=== PATIENT | female | born 1960 | race American Indian/Alaskan Native ===

== ENCOUNTER 2017-01-28 06:58 | Day surgery (SDC) | payer MEDICAID ==
[~2017-01-28 06:58] MED LIST: TETRACAINE 0.5% OD PRN
--- NOTE | 2017-01-28 07:38 | Anesthesia Consultation ---
Anesthesia Consult and Med Hx Date of service: 01/28/17 - Airway Anesthetic Teeth Evaluation: Edentulous ROM Head & Neck: Adequate Mental/Hyoid Distance: Adequate Mallampati Class: Class II Intubation Access Assessment: Probably Good - Pulmonary Exam CTA: Yes - Cardiac Exam Cardiac Exam: RRR - Pre-Operative Health Status ASA Pre-Surgery Classification: ASA3 Proposed Anesthetic Plan: MAC - Pulmonary Hx Smoking: Yes COPD: Yes - Cardiovascular System Hx Hypertension: Yes (since 2006) Hx Coronary Artery Disease: Yes Hx Heart Attack/AMI: Yes (2001) Hx Peripheral Vascular Disease: Yes (Stent right leg; carotid artery stent) - Other Systems Hx Cancer: No
--- NOTE | 2017-01-28 07:39 | Anesthesia Day of Surgery ---
Anesthesia Day of Surgery - Day of Surgery Patient Examined: Yes Patient H&P Reviewed: Yes Patient is NPO: Yes
[2017-01-28] MEDS ORDERED: NACL BACTERIOSTATIC INFILTRATI ONE (07:46)
[2017-01-28] MEDS: MYDRIACYL OD SCH ×3 (07:54→08:31)
[2017-01-28] MEDS: VIGAMOX OD SCH ×3 (07:54→08:31)
[2017-01-28] MEDS: AK-Dilate OD SCH ×3 (07:54→08:31)
[2017-01-28] MEDS ORDERED: VERSED ONE (08:30)
[2017-01-28] MEDS ORDERED: SUBLIMAZE ONE (08:30)
[2017-01-28] MEDS ORDERED: NACL 0.9% IR ONE (09:28)
--- NOTE | 2017-01-28 09:41 | Operative Report ---
Operative Report Operative Report: PATIENT'S NAME: DATE OF : DATE OF SURGERY: 01/28/2017 PREOPERATIVE DIAGNOSIS: Cataract right eye POSTOPERATIVE DIAGNOSIS: Same OPERATIVE PROCEDURE: Phacoemulsification with intraocular lens implantation, right eye SURGEON: Allie Durham M.D. BARRER AND TACKER SURGEON: Benny Lens: [id number] 20.5 D ANESTHESIA: Monitored anesthesia care in combination with topical and intracameral anesthesia because of the established specific risk of reflux, arrhythmias, or anxiety attacks associated with ocular manipulation, as well as the difficulty of the biomedical electronics technician to manage such potentially catastrophic events while simultaneously attempting to complete the surgical procedure and was deemed necessary for the patient's safety to have an Anhydrous Ammonia Production Supervisor present during the procedure whenever possible. An Anhydrous Ammonia Production Supervisor was utilized to regulate the intravenous sedation of the patient so the patient was cooperative yet not asleep in order for the patient to successfully maintain fixation of the eye on the operating light of the microscope. COMPLICATIONS: No surgical complications No blood loss. ALLERGIES: Acetaminophen codeine and hydrocodone PROGNOSIS: Excellent INDICATIONS FOR SURGERY: The patient is undergoing surgery in the hopes of eliminating or improving these visual difficulties. PROCEDURE: After arriving at the surgery center, the patient was given topical anesthetic and dilating drops, as noted in the record. The patient was then taken into the operating room and given more anesthetic drops. The eyelids , lashes, and lid margins were scrubbed with Betadine solution, and the patient was draped. The Nurse Anhydrous Ammonia Production Supervisor administered IV sedation and monitored the patient during the procedure. The eye was then fixated with a 0.12, and a stab incision was made in the peripheral clear cornea into the anterior chamber. This was made on my left side. Viscoelastic was next used to fill the anterior chamber. The eye was once again fixated with the 0.12 forceps and a keratome was used make an incision in clear cornea peripherally on my right hand side temporally. The capsule forceps were used to open the central anterior capsule and then make a continuous round capsulotomy. Hydrodissection was carried out utilizing a cannula and balanced salt solution to delineate the cortical material from the capsule and the nucleus from the cortical material. The phaco tip was introduced into the eye and used to remove the anterior cortical material in the area of the capsulotomy. Then the phaco tip was buried into the nucleus, and a chopping instrument was introduced into the eye and used to provide countertraction in the nucleus between this instrument and the phaco tip fracturing the nucleus. This procedure was repeated multiple times, providing multiple small segments of the lens, and then the phaco tip was used to remove each of these segments. An I/A tip was then used to remove the remaining cortex. The anterior chamber was refilled with viscoelastic. An one-piece, acrylic intraocular lens was then placed into an inserting cartridge. The tip of the inserting cartridge was introduced into the keratome incision and into the anterior chamber. The implant was gently advanced through the cartridge and into the eye, where it unfolded, and both haptics were placed in the capsular bag, where it centered nicely and appeared to be well fixated. After placement of the intraocular lens, the I~and~A handpiece was placed back into the eye and used to remove the viscoelastic, including viscoelastic that was behind the optic of the intraocular lens. The anterior chamber was then filled with balanced salt solution, and hydration of the wound was used to cause swelling of the wound and more appropriate watertight closure. When the wound was found to be firm, the patient was asked to comment on how bright the light was. If there was no light perception at all or if the light was substantially dimmer than during the rest of the surgery, the amount of fluid in the eye was decompressed to lower the intraocular pressure until the patient could see the bright light again. This was done to avoid any damage or decreased blood flow to the optic nerve. MEDICATIONS APPLIED AT END OF SURGERY: One drop of Pred Forte and Vigamox The patient was given a shield to wear at night and was instructed not to rub or push on the eye. DISCHARGE SUMMARY: The patient was released in stable condition. The patient and those with the patient were given a written sheet of postoperative instructions and counseling on any abnormal laboratory studies. The patient is to see us tomorrow for follow-up in the office and is to call immediately for any difficulties. Allie Durham M.D. Date
--- NOTE | 2017-01-28 09:42 | Short Stay Summary ---
Short Stay Documentation Date of service: 01/28/17 - History H&P: obtained from office - Allergies and Medications Current Medications: Allergies acetaminophen [From Vicodin] Allergy (Verified 01/27/17 11:16) Itching codeine Allergy (Verified 01/27/17 11:16) Itching hydrocodone bitartrate [From Vicodin] Allergy (Verified 01/27/17 11:16) Itching Home Medications Medication Instructions Recorded Confirmed Last Taken Type AtorvaSTATin [Lipitor] 80 mg PO DAILY 01/28/17 01/28/17 01/27/17 History Budesoni/Formoterol 80-4.5(Nf) 2 puff IH BID 01/28/17 01/28/17 01/27/17 History [Symbicort 80-4.5 (Nf)] Carvedilol [Coreg] 25 mg PO BID 01/28/17 01/28/17 01/28/17 06:30 History Diltiazem HCl [Diltiazem ER] 240 mg PO DAILY 01/28/17 01/28/17 01/27/17 History Ipratropium (Nf) [Atrovent HFA 1 puff IH DAILY 01/28/17 01/28/17 01/27/17 History 17MCG/PUFF] Ipratropium [place] [Ipratropium 0.2 mg IH DAILY 01/28/17 01/28/17 01/27/17 History [place]] Levalbuterol Hfa 45 Mcg/Puff 0.31 mg IH DAILY 01/28/17 01/28/17 01/27/17 History [Xopenex Hfa (Nf)] Lisinopril [Lisinopril] 20 mg PO DAILY 01/28/17 01/28/17 01/28/17 06:30 History Potassium Chloride [Potassium 10 meq PO DAILY 01/28/17 01/28/17 01/27/17 History Chloride] Ranitidine HCl [Zantac 150 MG TAB] 150 mg PO BID 01/28/17 01/28/17 01/27/17 History Torsemide [Torsemide] 20 mg PO DAILY 01/28/17 01/28/17 01/27/17 History Warfarin [Coumadin] 5 mg PO QDAY 01/28/17 01/28/17 01/27/17 History Active Medications Moxifloxacin HCl (Vigamox) 1 drops OD Q5MIN JESSE Stop: 01/30/17 06:01 Last Admin: 01/28/17 08:31 Dose: 1 drops Phenylephrine HCl (Ak-Dilate) 1 drops OD Q5MIN JESSE Stop: 01/30/17 06:01 Last Admin: 01/28/17 08:31 Dose: 1 drops Prednisolone Acetate (Pred Forte 1%) 1 drops OD QID JESSE Tetracaine HCl (Tetracaine 0.5%) 1 drops OD Q5M PRN PRN Reason: Analgesia Last Admin: 01/28/17 07:54 Dose: 1 drops Tropicamide (Mydriacyl) 1 drops OD Q5MIN [facility] Stop: 01/30/17 06:01 Last Admin: 01/28/17 08:31 Dose: 1 drops - Brief post op/procedure progress note Date of procedure: 01/28/17 Pre-op diagnosis: cataract right eye Post-op diagnosis: same Procedure: Emulsification with intraocular lens insertion right eye Anesthesia: MAC Surgeon: ANN GARCIA Estimated blood loss: none Condition: stable - Disposition Condition at discharge: Good Disposition: DISCHARGED TO HOME OR SELFCARE - Discharge Diagnoses (1) Cataract Status: Resolved Short Stay Discharge Plan Follow up with: PRIMARY CARE, [Primary Care Provider] - 7 Days
[2017-01-28] MEDS ORDERED: PRED FORTE 1% OD SCH (10:00)
--- NOTE | 2017-01-28 10:20 | Post Anesthesia Evaluation ---
- Post Anesthesia Evaluation Patient Participated: Yes Airway Patent: Yes Stable Respiratory Function: Yes Nausea/Vomiting: No Temp > 96.8F: Yes Pain Manageable: Yes Adequeate Hydration: Yes Anesthesia Complications: No Block Receding Appropriately: Not Applicable Patient on Ventilator: No
[2017-01-28 11:44] VITALS: BP 131/72
--- NOTE | 2017-01-29 01:55 | Admit Criteria Form ---
Admission Criteria Documentation: AMBULATORY SURGERY EXCEPTION CRITERIA Ambulatory Surgery Exception Criteria ( Place 'X' for any and all applicable criteria): Surgery or procedure performed on ambulatory basis may require inpatient stay for[A] ANY ONE of the following(1)(2)(3)(4)(5)(6)(7)(8)(9): [X] I. A preoperative situation, condition, or finding that warrants inpatient stay as indicated by ANY ONE of the following: [] a) Inpatient care needed because of severity of a disease or condition rather than the surgery (eg, severe cardiac or respiratory disease, severe infection) (15) (16 ) (17) (18) [] b) Emergent procedure (eg, angioplasty for acute ischemia)(19) [] c) Complex surgical approach or situation as indicated by ANY ONE of the following(3): [] i) Open approach needed instead of usual endoscopic, transcatheter, or other less invasive procedure [] ii) Difficult approach because of previous operation [] iii) Airway monitoring required after open neck procedures(20)(21) [] iv) Large mass requiring unusually extensive dissection [] v) Additional complicating feature requiring inpatient care (eg, drain management)(22(23): [X] d) Major surgery in a pt with high anesthetic risk as indicated by ANY ONE of the following (2)(3)(5)(7)(8): [X] i) ASA risk class III or higher (severe systemic disease impairing function) [D] [] ii) Advanced age (eg, older than 85 years)(14)(24) [] iii) Symptomatic heart failure(25) [] iv) Symptomatic asthma or COPD(8)(21) [] v) Morbid obesity with hemodynamic or respiratory problems(20)( 21)(26)(27) [] vi) Obstructive sleep apnea(20)(21) [] vii) Former premature infants who are younger than 60 weeks [] viii) High risk for severe postoperative abnormalities (eg, severe postoperative hypocalcemia after parathyroidectomy for severe hyperparathyroidism)(27)( 28) [] ix) Unstable angina(25) [] e) Drug-related risk requiring inpatient stay as indicated by ANY ONE of the following(5)(10)(14)(32)(33) [] i) Procedure requires discontinuing drugs or other therapy (eg , antiarrhythmic medication, antiseizure medication), which necessitates inpatient observation or treatment.(18)(31) [] ii) Major surgery and high risk drug use as indicated by ANY ONE of the following: [] 1) Active abuse of cocaine or similar drug [] 2) Monoamine oxidase inhibitor use [] 3) Other drug identified as posing risk [] f) Inadequate outpatient care situation as indicated by ANY ONE of the following(5)(10)(14)(32)(33) [] i) Patient lives remote from medical facility and procedure has urgent complication potential, and temporary nearby residence cannot be arranged [] ii) Patient will have postprocedure incapacitation and inadequate assistance at home, or alternative level of care cannot be arranged. [] iii) Patient will have long general anesthesia or procedure side effect resolution time, and competent person to stay with patient on first postoperative night at home or alternative level of care cannot be arranged. []iv) Other inadequate outpatient situation that cannot be handled by other means [] II. A perioperative event, condition, or finding that warrants inpatient stay as indicated by ANY ONE of the following (1)(2)(3): [] a) Inadequate physiologic recovery: cardiovascular, respiratory, or hemodynamic status not normal or near preoperative baseline(18) [] b) Hemodynamic instability [] c) Patient not alert with near normal or baseline mental status [] d) Temperature not normal or as expected and not appropriate for outpatient treatment of condition [] e) Ambulatory or appropriate activity level status not yet achieved post procedure [E](34)(35)(36) [] f) Operative site not appropriate (eg, unexpected or excessive drainage or bleeding) [] g) Postoperative effects not resolved or adequately managed (eg, significant pain or vomiting not appropriate for outpatient or next level of care)(10)(12) [] h) Complicating features requiring inpatient care as indicated by ANY ONE of the following(37): [] i) Severe complications of procedure (eg, bowel injury, airway compromise, vascular injury,severe hemorrhage) [] ii) Extensive (eg, dissection far beyond usual scope of procedure ) or prolonged (eg, 120 minutes beyond usual) surgery needed requiring inpatient postoperative care [] iii) Conversion to an open or complex procedure that requires inpatient care (eg, open vs laparoscopic cholecystectomy, abdominal vs vaginal hysterectomy)(38) [] iv) Comorbid condition or test result identified during or post procedure that requires inpatient care (7) [] v) Malignant hyperthermia(30) [] vi) Other complicating feature requiring inpatient care(22)(23) Inpatient stay may be needed until ALL of the following are present (1)(2)(3)(4) (5)(6)(10)(14)(33)(40): []a) Physiologic recovery: cardiovascular, respiratory, and hemodynamic status normal or near preoperative baseline []b) Hemodynamic stability []c) Patient alert, with near normal or baseline mental status []d) Temperature appropriate: patient afebrile or temperature appropriate for outpt treatment of condition []e) Activity level appropriate: ambulatory or appropriate activity level post procedure []f) Operative site appropriate as indicated by ALL of the following: []i) Site dry or with expected drainage []ii) Any blood noted is as expected for procedure. []g) Postoperative effects resolved or managed as indicated by ALL of the following: []i) Pain management appropriate for outpatient (or next level of) care(10) []ii) Minimal nausea and vomiting: if present, successfully treated with oral medication(12) []iii) Headache, dizziness, or drowsiness (if present) are mild. []h) Voiding status acceptable as indicated by ANY ONE of the following: []i) Voiding spontaneously []ii) No voiding but instructions given for follow-up in 6 to 8 hours []iii) Urinary catheter in place, and instructions given for follow-up []i) Complicating features requiring inpatient care manageable at a lower level of care(37) []j) Comorbid conditions manageable at a lower level of care(37) The original [employer] content created by [employer] has been revised. The portions of the content which have been revised are identified through the use of italic text or in bold, and [facility] has neither reviewed nor approved the modified material. All other unmodified content is copyright [employer]. Please see references footnoted in the original [employer] edition 2016 Admission Criteria Met: Yes
== END 2017-01-28 10:30 | disposition home or self-care (01) ==
LOC: OR 06:58
DX: H25.11 Age-related nuclear cataract, right eye (principal); Z87.891 Personal history of nicotine dependence; J44.9 Chronic obstructive pulmonary disease, unspecified; E78.00 Pure hypercholesterolemia, unspecified; I11.0 Hypertensive heart disease with heart failure; I50.9 Heart failure, unspecified; Z95.1 Presence of aortocoronary bypass graft
CPT/HCPCS: 66984; J2250; J3010; V2630; V2632

== ENCOUNTER 2017-02-25 07:51 | Day surgery (SDC) | payer MEDICAID ==
[~2017-02-25 07:51] MED LIST changes: -TETRACAINE 0.5% OD PRN; +TETRACAINE 0.5% OS PRN; +WATER FOR IRRIG STERILE IR ONE
[2017-02-25] MEDS: MYDRIACYL OS SCH ×3 (09:00→09:10)
[2017-02-25] MEDS: AK-Dilate OS SCH ×3 (09:00→09:10)
[2017-02-25] MEDS: VIGAMOX OS SCH ×3 (09:03→09:10)
--- NOTE | 2017-02-25 09:26 | Anesthesia Day of Surgery ---
Anesthesia Day of Surgery - Day of Surgery Patient Examined: Yes Patient H&P Reviewed: Yes Patient is NPO: Yes Beta Blockers: Yes
--- NOTE | 2017-02-25 09:26 | Anesthesia Consultation ---
Anesthesia Consult and Med Hx Date of service: 02/25/17 - Airway Anesthetic Teeth Evaluation: Good ROM Head & Neck: Adequate Mental/Hyoid Distance: Adequate Mallampati Class: Class II Intubation Access Assessment: Probably Good - Pulmonary Exam CTA: Yes - Cardiac Exam Cardiac Exam: RRR - Pre-Operative Health Status ASA Pre-Surgery Classification: ASA3 Proposed Anesthetic Plan: MAC - Pulmonary Hx Smoking: Yes COPD: Yes - Cardiovascular System Hx Hypertension: Yes (since 2006) Hx Coronary Artery Disease: Yes Hx Heart Attack/AMI: Yes (2001) Hx Peripheral Vascular Disease: Yes (Stent right leg; carotid artery stent) - Central Nervous System Hx Psychiatric Problems: No - Other Systems Hx Cancer: No
[2017-02-25] MEDS ORDERED: VERSED ONE (10:18)
[2017-02-25] MEDS ORDERED: WATER FOR IRRIG STERILE IR ONE (10:44)
[2017-02-25 11:13] VITALS: BP 135/69
--- NOTE | 2017-02-25 11:14 | Short Stay Summary ---
Short Stay Documentation Date of service: 02/25/17 - History H&P: obtained from office - Allergies and Medications Current Medications: Allergies acetaminophen [From Vicodin] Allergy (Verified 02/24/17 08:10) Itching codeine Allergy (Verified 02/24/17 08:10) Itching hydrocodone bitartrate [From Vicodin] Allergy (Verified 02/24/17 08:10) Itching Home Medications Medication Instructions Recorded Confirmed Last Taken Type AtorvaSTATin [Lipitor] 80 mg PO DAILY 01/28/17 02/24/17 01/27/17 History Budesoni/Formoterol 80-4.5(Nf) 2 puff IH BID 01/28/17 02/24/17 01/27/17 History [Symbicort 80-4.5 (Nf)] Carvedilol [Coreg] 25 mg PO BID 01/28/17 02/24/17 01/28/17 06:30 History Diltiazem HCl [Diltiazem ER] 240 mg PO DAILY 01/28/17 02/24/17 01/27/17 History Ipratropium (Nf) [Atrovent HFA 1 puff IH DAILY 01/28/17 02/24/17 01/27/17 History 17MCG/PUFF] Ipratropium [place] [Ipratropium 0.2 mg IH DAILY 01/28/17 02/24/17 01/27/17 History [place]] Levalbuterol Hfa 45 Mcg/Puff 0.31 mg IH DAILY 01/28/17 02/24/17 01/27/17 History [Xopenex Hfa (Nf)] Lisinopril [Lisinopril] 20 mg PO DAILY 01/28/17 02/24/17 01/28/17 06:30 History Potassium Chloride [Potassium 10 meq PO DAILY 01/28/17 02/24/17 01/27/17 History Chloride] Ranitidine HCl [Zantac 150 MG TAB] 150 mg PO BID 01/28/17 02/24/17 01/27/17 History Torsemide [Torsemide] 20 mg PO DAILY 01/28/17 02/24/17 01/27/17 History Warfarin [Coumadin] 5 mg PO QDAY 01/28/17 02/24/17 01/27/17 History Active Medications Moxifloxacin HCl (Vigamox) 1 drops OS Q5MIN [facility] Stop: 02/27/17 07:01 Last Admin: 02/25/17 09:10 Dose: 1 drops Phenylephrine HCl (Ak-Dilate) 1 drops OS Q5MIN J[facility] Stop: 02/27/17 07:01 Last Admin: 02/25/17 09:10 Dose: 1 drops Prednisolone Acetate (Pred Forte 1%) 1 drops OS QID JESSE Last Admin: 02/25/17 11:07 Dose: 1 drops Tetracaine HCl (Tetracaine 0.5%) 1 drops OS Q5M PRN PRN Reason: Analgesia Last Admin: 02/25/17 09:00 Dose: 1 drops Tropicamide (Mydriacyl) 1 drops OS Q5MIN [facility] Stop: 02/27/17 07:01 Last Admin: 02/25/17 09:10 Dose: 1 drops - Brief post op/procedure progress note Date of procedure: 02/25/17 Pre-op diagnosis: left cataract Post-op diagnosis: same Procedure: Phacoemulsification with intraocular lens insertion left eye Anesthesia: MAC Surgeon: ANN GARCIA Estimated blood loss: none Pathology: none Condition: stable - Disposition Condition at discharge: Good Disposition: DISCHARGED TO HOME OR SELFCARE - Discharge Diagnoses (1) Cataract Status: Resolved Short Stay Discharge Plan Follow up with: PRIMARY CARE, [Primary Care Provider] - 7 Days
--- NOTE | 2017-02-25 11:15 | Operative Report ---
Operative Report Operative Report: PATIENT'S NAME: DATE OF : DATE OF SURGERY: 02/25/2017 PREOPERATIVE DIAGNOSIS: Cataract left eye POSTOPERATIVE DIAGNOSIS: Same OPERATIVE PROCEDURE: Phacoemulsification with intraocular lens implantation, left eye SURGEON: Allie Durham M.D. CARD RUNNER SURGEON: Benny Lens: [id number] 20.5 D ANESTHESIA: Monitored anesthesia care in combination with topical and intracameral anesthesia because of the established specific risk of reflux, arrhythmias, or anxiety attacks associated with ocular manipulation, as well as the difficulty of the pediatric hospitalist to manage such potentially catastrophic events while simultaneously attempting to complete the surgical procedure and was deemed necessary for the patient's safety to have an Piano Assembler present during the procedure whenever possible. An Piano Assembler was utilized to regulate the intravenous sedation of the patient so the patient was cooperative yet not asleep in order for the patient to successfully maintain fixation of the eye on the operating light of the microscope. COMPLICATIONS: No surgical complications No blood loss. ALLERGIES: Codeine acetaminophen hydrocodone PROGNOSIS: Excellent INDICATIONS FOR SURGERY: The patient is undergoing surgery in the hopes of eliminating or improving these visual difficulties. PROCEDURE: After arriving at the surgery center, the patient was given topical anesthetic and dilating drops, as noted in the record. The patient was then taken into the operating room and given more anesthetic drops. The eyelids , lashes, and lid margins were scrubbed with Betadine solution, and the patient was draped. The Nurse Piano Assembler administered IV sedation and monitored the patient during the procedure. The eye was then fixated with a 0.12, and a stab incision was made in the peripheral clear cornea into the anterior chamber. This was made on my left side. Viscoelastic was next used to fill the anterior chamber. The eye was once again fixated with the 0.12 forceps and a keratome was used make an incision in clear cornea peripherally on my right hand side temporally. The capsule forceps were used to open the central anterior capsule and then make a continuous round capsulotomy. Hydrodissection was carried out utilizing a cannula and balanced salt solution to delineate the cortical material from the capsule and the nucleus from the cortical material. The phaco tip was introduced into the eye and used to remove the anterior cortical material in the area of the capsulotomy. Then the phaco tip was buried into the nucleus, and a chopping instrument was introduced into the eye and used to provide countertraction in the nucleus between this instrument and the phaco tip fracturing the nucleus. This procedure was repeated multiple times, providing multiple small segments of the lens, and then the phaco tip was used to remove each of these segments. An I/A tip was then used to remove the remaining cortex. The anterior chamber was refilled with viscoelastic. An one-piece, acrylic intraocular lens was then placed into an inserting cartridge. The tip of the inserting cartridge was introduced into the keratome incision and into the anterior chamber. The implant was gently advanced through the cartridge and into the eye, where it unfolded, and both haptics were placed in the capsular bag, where it centered nicely and appeared to be well fixated. After placement of the intraocular lens, the I~and~A handpiece was placed back into the eye and used to remove the viscoelastic, including viscoelastic that was behind the optic of the intraocular lens. The anterior chamber was then filled with balanced salt solution, and hydration of the wound was used to cause swelling of the wound and more appropriate watertight closure. When the wound was found to be firm, the patient was asked to comment on how bright the light was. If there was no light perception at all or if the light was substantially dimmer than during the rest of the surgery, the amount of fluid in the eye was decompressed to lower the intraocular pressure until the patient could see the bright light again. This was done to avoid any damage or decreased blood flow to the optic nerve. MEDICATIONS APPLIED AT END OF SURGERY: One drop of Pred Forte and Vigamox The patient was given a shield to wear at night and was instructed not to rub or push on the eye. DISCHARGE SUMMARY: The patient was released in stable condition. The patient and those with the patient were given a written sheet of postoperative instructions and counseling on any abnormal laboratory studies. The patient is to see us tomorrow for follow-up in the office and is to call immediately for any difficulties. Allie Durham M.D. Date
[2017-02-25] MEDS ORDERED: PRED FORTE 1% OS SCH (14:00)
== END 2017-02-25 11:37 | disposition home or self-care (01) ==
LOC: OR 07:51
DX: H26.9 Unspecified cataract (principal); I10 Essential (primary) hypertension; F17.210 Nicotine dependence, cigarettes, uncomplicated; J44.9 Chronic obstructive pulmonary disease, unspecified; I25.10 Atherosclerotic heart disease of native coronary artery without angina pectoris; I25.2 Old myocardial infarction; Z86.79 Personal history of other diseases of the circulatory system
CPT/HCPCS: 66984; J2250; V2632